=== PATIENT | female | born 1990 | race Caucasian/White ===

== ENCOUNTER 2019-12-16 07:08 | Emergency (ER) | payer MEDICAID, SELFPAY ==
[2019-12-16] MEDS ORDERED: Aspirin 81 MG Tab.Chew PO ONE (07:50)
[2019-12-16] MEDS ORDERED: LORazepam 1 MG Tab PO ONE (07:53)
[2019-12-16] MEDS ORDERED: Ketorolac 60 MG/2 ML SDV IM ONE (07:53)
--- NOTE | 2019-12-16 08:48 | EDM.PDOC ---
ED HPI GENERAL MEDICAL PROBLEM - General Chief Complaint: Chest Pain Stated Complaint: chest pain Time Seen by Provider: 12/16/19 07:25 Source of Information: Reports: Patient History Limitations: Reports: No Limitations - History of Present Illness INITIAL COMMENTS - FREE TEXT/NARRATIVE: Patient presented to the ED because of left sided chest pain,12/20. Denies any N/ V but c/o dyspnea. No recent cough or cold, no fever or chills. Mid-Sternal Chest Pain Score (Numeric/FACES): 7 - Related Data Allergies Allergy/AdvReac Type Severity Reaction Status Date / Time No Known Allergies Allergy Verified 12/16/19 07:12 Home Meds: Home Meds ALPRAZolam [Alprazolam] 1 mg PO BID 12/16/19 [History] Amphetamine/Dextroamphetamine [Adderall] 20 mg PO BID 12/16/19 [History] Propranolol [Inderal LA] 60 mg PO DAILY 12/16/19 [History] Spironolactone [Aldactone] 25 mg PO DAILY 12/16/19 [History] Venlafaxine [Effexor XR] 150 mg PO DAILY 12/16/19 [History] lamoTRIgine 200 mg PO DAILY 12/16/19 [History] metFORMIN [Glucophage] 500 mg PO DAILY 12/16/19 [History] Past Medical History Other Respiratory History: history of rib fractures [employer] History: Reports: Polycystic Ovaries Neurological History: Reports: Brain Injury Psychiatric History: Reports: Anxiety, Depression - Past Surgical History HEENT Surgical History: Reports: Oral Surgery Other HEENT Surgeries/Procedures: wisdom teeth removed Other Musculoskeletal Surgeries/Procedures:: history of lumbar fracture, foot fracture Social & Family History - Family History Family Medical History: Noncontributory - Tobacco Use Smoking Status *Q: Never Smoker - Caffeine Use Caffeine Use: Reports: Soda - Recreational Drug Use Recreational Drug Use: No ED ROS GENERAL - Review of Systems Review Of Systems: See Below Constitutional: Reports: No Symptoms HEENT: Reports: No Symptoms Respiratory: Reports: Shortness of Breath Cardiovascular: Reports: Chest Pain Endocrine: Reports: No Symptoms GI/Abdominal: Reports: No Symptoms : Reports: No Symptoms Musculoskeletal: Reports: No Symptoms Skin: Reports: No Symptoms ED EXAM, GENERAL - Physical Exam Exam: See Below Exam Limited By: No Limitations General Appearance: Alert, No Apparent Distress Eye Exam: Bilateral Eye: PERRL Ears: Normal External Exam, Normal Canal Nose: Normal Inspection, Normal Mucosa, No Blood Throat/Mouth: Normal Inspection, Normal Lips, Normal Teeth Head: Atraumatic, Normocephalic Neck: Normal Inspection, Supple, Non-Tender Respiratory/Chest: No Respiratory Distress, Lungs Clear, Normal Breath Sounds Cardiovascular: Normal Peripheral Pulses, Regular Rate, Rhythm, No Edema, No Gallop GI/Abdominal: Normal Bowel Sounds, Soft, Non-Tender, No Organomegaly Back Exam: Normal Inspection, Full Range of Motion Extremities: Normal Inspection, Normal Range of Motion Course - Vital Signs Text/Narrative:: LKbas/EKG was discussed with patient and verbalized full understanding ASA 324 mg EKG-NSR Trop-neg ASA 324 mg po x1 Toradol 60 mg IM x1 ativan 1 mg IM Last Recorded V/S: Last Vital Signs Temp 36.6 C 12/16/19 07:21 Pulse 75 12/16/19 07:21 Resp 16 12/16/19 07:35 BP 107/66 12/16/19 08:46 Pulse Ox 99 12/16/19 08:46 - Orders/Labs/Meds Labs: Laboratory Tests 12/16/19 12/16/19 12/16/19 Range/Units 08:05 08:05 08:05 WBC 10.8 (4.5-12.0) X10-3/uL RBC 4.30 (3.23-5.20) x10(6)uL Hgb 12.9 (11.5-15.5) g/dL Hct 38.5 (30.0-51.3) % MCV 89.5 (80-96) fL MCH 29.9 (27.7-33.6) pg MCHC 33.4 (32.2-35.4) g/dL RDW 14.3 (11.5-15.5) % Plt Count 298 (125-369) X10(3)uL MPV 7.7 (7.4-10.4) fL Neut % (Auto) 83.5 H (46-82) % Lymph % (Auto) 9.7 L (13-37) % [place] % (Auto) 6.2 (4-12) % Eos % (Auto) 0 L (1.0-5.0) % Baso % (Auto) 0 (0-2) % Neut # (Auto) 9.1 H (1.6-8.3) # Lymph # (Auto) 1.0 (0.6-5.0) # [place] # (Auto) 0.7 (0.0-1.3) # Eos # (Auto) 0.0 (0.0-0.8) # Baso # (Auto) 0.0 (0.0-0.2) # Sodium 139 (135-145) mmol/L Potassium 4.7 (3.5-5.3) mmol/L Chloride 103 (100-110) mmol/L Carbon Dioxide 32 (21-32) mmol/L BUN 15 (7-18) mg/dL Creatinine 1.1 H (0.55-1.02) mg/dL Est Cr Clr Drug Dosing 70.01 mL/min Estimated GFR (MDRD) 58 L (>60) BUN/Creatinine Ratio 13.6 (9-20) Glucose 128 H (80-116) mg/dL Calcium 9.0 (8.6-10.2) mg/dL Troponin I < 4.0 L (4.0-60.3) pg/mL Meds: Medications Discontinued Medications Generic Name Dose Route Start Last Admin Trade Name Freq PRN Reason Stop Dose Admin Aspirin 324 mg 12/16/19 07:50 12/16/19 08:10 Aspirin PO 12/16/19 07:51 324 mg ONETIME ONE Administration Ketorolac Tromethamine 60 mg 12/16/19 07:53 12/16/19 08:11 Toradol IM 12/16/19 07:54 60 mg ONETIME ONE Administration Lorazepam 1 mg 12/16/19 07:53 12/16/19 08:10 Ativan PO 12/16/19 07:54 1 mg ONETIME ONE Administration Departure - Departure Time of Disposition: 08:50 Disposition: Home, Self-Care 01 Condition: Good Clinical Impression: Atypical chest pain, Anxiety Instructions: Generalized Anxiety Disorder, Adult, Nonspecific Chest Pain, Adult, [id number] Referrals: Ines Puga MD [Primary Care Provider] - Forms: ED Department Discharge Additional Instructions: please read discharge instructions on chest pain and anxiety continue your medications You can take ibuprofen 800 mg with tylenol 1000 mg every 8 hours as needed for your chest wall pain follow up as needed Sepsis Event Note - Evaluation Sepsis Screening Result: No Definite Risk - Focused Exam Date Exam was Performed: 12/17/19 Time Exam was Performed: 17:57
== END 2019-12-16 09:01 | disposition home or self-care (01) ==
LOC: FB.ED 07:08
DX: F41.9 Anxiety disorder, unspecified (principal); F32.9 Major depressive disorder, single episode, unspecified; Z79.899 Other long term (current) drug therapy
CPT/HCPCS: 36415; 80048; 84484; 85025; 93005; 96372; 99285; A9270; J1885